=== PATIENT | male | born 1990 | race Caucasian/White ===

== ENCOUNTER 2022-10-06 11:38 | Emergency (ER) | payer OTHER ==
[2022-10-06 11:53] VITALS: BP 123/81; PULSE 82; RESP 18; TEMP 98.2; BMI 30.8
== END 2022-10-06 13:28 | disposition home or self-care (01) ==
LOC: JERFT 11:38
DX: S39.92XA Unspecified injury of lower back, initial encounter (principal); X50.0XXA Overexertion from strenuous movement or load, initial encounter; Y93.I9 Activity, other involving external motion; Y99.0 Civilian activity done for income or pay
CPT/HCPCS: 72070-TC-FY; 99283-25